=== PATIENT | male | born 1935 | race African-American/Black ===

== ENCOUNTER 2020-02-03 13:14 | Emergency (ER) | payer MEDICARE, OTHER ==
[~2020-02-03] VITALS: Ht 172.7 cm; Wt 77.1 kg
--- NOTE | 2020-02-03 13:42 | Emergency Room Report ---
History of Present Illness General Chief Complaint: Lower Extremity Injury Source: Patient, Medical Record Present Illness HPI Patient is an 84-year-old male who presented after increased left lower extremity pain. Reportedly had a fall approximately 1 week ago. Increased swelling to the anterior left leg. Had noticed some increased redness to the area as well as swelling. Patient's patient denies any headaches or weakness. Prior history of peripheral vascular disease and had previous stenting to the left lower extremity. Denies any fever. Had not been having any significant progression since the injury. Patient is normally followed at the [facility]. Patient had not been having any extremity weakness or numbness. He denies any increased pain with ambulation but reports having some pain with external rotation. Allergies: Coded Allergies: No Known Allergies (Unverified , 02/03/20) COVID-19 Screening Contact w/high risk pt: No Recent Travel to affected area: No Experienced COVID-19 symptoms?: No COVID-19 Testing performed PHARMACY OPERATIONS COORDINATOR: No Patient History Past Medical History: see triage record Reviewed Nursing Documentation: PMH: Agreed; PSxH: Agreed Nursing Documentation-PMH Past Medical History: No History, Except For Hx Hypertension: Yes Hx Neurological Problems: Yes - memory problem Review of Systems All Other Systems: negative except mentioned in HPI Physical Exam Vital Signs Date Time Temp Pulse Resp B/P (MAP) Pulse Ox O2 Delivery O2 Flow Rate FiO2 02/03/20 13:32 98.8 84 16 127/63 (84) 97 Room Air Sp02 EP Interpretation: reviewed, normal General Appearance: normal inspection, well appearing, no apparent distress, alert, GCS 15, Chronically Ill Head: atraumatic ENT: normal ENT inspection, hearing grossly normal, normal voice Neck: normal inspection, full range of motion, supple, no bony tend Respiratory: normal inspection, lungs clear, normal breath sounds, no respiratory distress, no retraction, no wheezing Cardiovascular #1: regular rate, rhythm, no edema Gastrointestinal: normal inspection, normal bowel sounds, non tender, soft, no guarding, no hernia Genitourinary: no CVA tenderness Musculoskeletal: normal inspection, back normal, normal range of motion Neurologic: alert, responsive, speech normal, normal inspection, other - Right upper extremity weakness. Psychiatric: normal inspection, judgement/insight normal, mood/affect normal Skin: other - Swelling and erythema to the anterior left leg. Pulses intact. Procedures Incision and Drainage Incision and Drainage : Consent: Written Site: left leg Blade Size: 15 I & D Procedure: betadine prep, sterile drapes applied, sterile dressing applied, gauze wick placed Wound Location: lower extremity Wound's Depth, Shape: superficial Wound Length (cm): 2 Wound Explored: clean Volume Anesthetic (ccs): 3 Patient Tolerated: Well Complications: None Progress drained hematoma from left anterior leg. Medical Decision Making Diagnostic Impression: Primary Impression: Left leg pain Additional Impressions: Hematoma Contusion ER Course Patient presented for left lower extremity pain. Differential diagnosis include was not limited to fracture, hematoma, compartment syndrome, abscess among others. Because of complexity of patient's case laboratory tests and imaging studies were ordered.Imaging 2 views interpreted by me showed normal bony alignment without evident fracture. Patient was consented for incision and drainage. Patient was advised risk benefits and alternatives of incision of left lower extremity including but not limited to infection bleeding and loss of limb. Patient indicates understanding and wishes to proceed with procedure.Patient's laboratory testing was unremarkable. Incision and drainage was performed and expressed moderate amount of dark clot with improvement in local skin color. Patient was advised to have the wound rechecked in 2 days. He was given prescription for Keflex. He is advised to follow-up with either primary care physician or at this emergency department in 2 days for wound recheck.Patient was advised warm wound precautions and signs of infection. This medical record is generated with [employer] dairy farm worker software. There may be some dairy farm worker discrepancies related to use of this software Last Vital Signs Date Time Temp Pulse Resp B/P (MAP) Pulse Ox O2 Delivery O2 Flow Rate FiO2 02/03/20 13:32 98.8 84 16 127/63 (84) 97 Room Air Status: improved Disposition: HOME, SELF-CARE Condition: Stable Sage Mata MD Feb 03, 2020 13:42
[2020-02-03] MEDS ORDERED: cefTRIAXone 1 GM in NS 55 ML IVPB ONE (13:45)
[2020-02-03 14:22] LABS: INR 0.9 (0.9-1.1)
[2020-02-03 14:25] LABS: ANION GAP 9 mmol/L (5-15); BLOOD UREA NITROGEN 32 mg/dL (7-18); CARBON DIOXIDE 25 MMOL/L (21-32); CHLORIDE 101 MMOL/L (98-107); CREATININE 1.6 MG/DL (0.55-1.30); POTASSIUM 4.6 MMOL/L (3.5-5.1); SODIUM 135 MMOL/L (136-145)
[2020-02-03 14:28] LABS: BASOPHILS % (AUTO) 0.7 % (0.0-2.0); EOSINOPHILS % (AUTO) 0.9 % (0.0-3.0); HEMATOCRIT 31.3 % (42.0-52.0); HEMOGLOBIN 10.4 G/DL (14.2-18.0); LYMPHOCYTES % (AUTO) 25.4 % (20.0-45.0); MEAN CORPUSCULAR VOLUME 83 FL (80-99); MONOCYTES % (AUTO) 8.4 % (1.0-10.0); NEUTROPHILS % (AUTO) 64.7 % (45.0-75.0); PLATELET COUNT 136 K/UL (150-450); RED BLOOD COUNT 3.75 M/UL (4.70-6.10); RED CELL DISTRIBUTION WIDTH 14.5 % (11.6-14.8); WHITE BLOOD COUNT 9.6 K/UL (4.8-10.8)
[2020-02-03 14:30] LABS: ALANINE AMINOTRANSFERASE 17 U/L (12-78); ALBUMIN 3.5 G/DL (3.4-5.0); ALBUMIN/GLOBULIN RATIO 0.9 (1.0-2.7); ALKALINE PHOSPHATASE 81 U/L (46-116); ASPARTATE AMINO TRANSFERASE 30 U/L (15-37); BILIRUBIN,TOTAL 0.5 MG/DL (0.2-1.0)
[2020-02-03] MEDS ORDERED: Lidocaine 1% 10mg/ml/EPI 0.01mg/ml 30ml INJ ONE (14:30)
[2020-02-03] MEDS ORDERED: CEPHALEXIN500 MG ORAL (15:09)
[2020-02-03 15:16] VITALS: BP 121/67
--- NOTE | 2020-02-03 15:24 | Diagnostic Imaging Report ---
Indication: Scabbed and infection of the anterior mid griffiths region Technique: 2 views of the left tibia and fibula Comparison: none Findings: No definite soft tissue gas demonstrated. No acute fractures. No dislocations. No osseous disruption. There are vascular calcifications. Impression: No acute process
== END 2020-02-03 15:15 | disposition home or self-care (01) ==
LOC: EMR 13:50
DX: S80.12XA Contusion of left lower leg, initial encounter (principal); M79.605 Pain in left leg; W19.XXXA Unspecified fall, initial encounter; I10 Essential (primary) hypertension
CPT/HCPCS: 10060; 36415; 73590; 80053; 85025; 85610; 85730; 96365; 99284; J0696

== ENCOUNTER 2020-02-11 10:39 | Emergency (ER) | payer MEDICARE, OTHER ==
[~2020-02-11] VITALS: Ht 177.8 cm; Wt 77.1 kg
[~2020-02-11 10:39] MED LIST: CEPHALEXIN500 MG ORAL
[2020-02-11 10:54] VITALS: BP 134/73
[2020-02-11 10:55] VITALS: BP 134/73
--- NOTE | 2020-02-11 10:55 | NUR ---
ED Nurse Note: Patient brought into ED by wheelchair accompanied by son d/t need the gauze packing removed from open wound on the anterior left lower leg. Patient was here in the ED about 1 week ago and had the wound packed with gauze and was advised to come back to have the packing removed. Patient AxO x 4, denies pain.
--- NOTE | 2020-02-11 10:56 | NUR ---
ED Nurse Note: Dr. Paz at bedside.
--- NOTE | 2020-02-11 11:08 | Emergency Room Report ---
History of Present Illness General Chief Complaint: Wound Recheck/Suture Removal Source: Medical Record Present Illness HPI 84-year-old male presents from home for a wound recheck. Patient had a fall approximately 1 week ago that developed a hematoma and possible cellulitis. Patient was seen here, had an incision and drainage performed and packing placed. Patient followed up at the [place] 2 days later, had packing replaced. Patient now presents for another wound recheck. Patient is still taking antibiotics. He states the wound appears improved. Denies any complaints at this time. Allergies: Coded Allergies: No Known Allergies (Unverified , 02/03/20) COVID-19 Screening Contact w/high risk pt: No Recent Travel to affected area: No Experienced COVID-19 symptoms?: No COVID-19 Testing performed PROMOTION WRITER: No Patient History Reviewed Nursing Documentation: PMH: Agreed; PSxH: Agreed Nursing Documentation-PMH Past Medical History: No History, Except For Hx Hypertension: Yes Hx Neurological Problems: Yes - memory problem Review of Systems All Other Systems: negative except mentioned in HPI Physical Exam Vital Signs Date Time Temp Pulse Resp B/P (MAP) Pulse Ox O2 Delivery O2 Flow Rate FiO2 02/11/20 10:54 98.1 75 14 134/73 (93) 95 Room Air Musculoskeletal: other - Wound noted to left lower extremity with packing in place, minimal surrounding erythema no purulence expressed Procedures Additional Procedure Procedure Narrative Wound care Verbal consent obtained, site was left lower extremity, packing was removed by me. Patient tolerated procedure well without complication, clean dressing applied. Medical Decision Making Diagnostic Impression: Primary Impression: Encounter for wound re-check ER Course Patient presented for a wound check. He had packing in place in the left lower extremity wound. Packing was removed by me. At this time I did apply bacitracin and a clean gauze. Patient still on oral antibiotics. I recommended continued wound care at home with cleaning daily soap and water, antibiotic ointment and clean gauze. Continue oral antibiotics and continue outpatient follow-up. Wound appears to be healing well. Stable for discharge. Last Vital Signs Date Time Temp Pulse Resp B/P (MAP) Pulse Ox O2 Delivery O2 Flow Rate FiO2 02/11/20 10:54 98.1 75 14 134/73 (93) 95 Room Air Disposition: HOME, SELF-CARE Condition: Improved Patient Instructions: Wound Check Additional Instructions: Please keep the wound clean, wash with soap and water daily and apply antibiotic ointment and a clean gauze at least once to twice a day. Patient is instructed to follow-up with her primary care doctor, primary care clinic or [facility] in 1 to 2 days. Patient instructed to return for any worsening symptoms or concerns. Disclaimer: Please note that this report is being documented using [employer] technology. This can lead to erroneous entry secondary to incorrect interpretation by the dictating instrument. Uriel Paz M.D. Feb 11, 2020 11:08
--- NOTE | 2020-02-11 11:11 | NUR ---
ER DISCHARGE NOTE: Patient is cleared to be discharged per Dr. Paz, pt is aox4, on room air, with stable vital signs. pt was given dc and prescription instructions, pt was able to verbalize understanding, pt id band removed. pt is able to ambulate with steady gait. wound dressed with bacitracin and gauze, as ordered by Dr. Paz. pt took all belongings.
[2020-02-11] MEDS ORDERED: Bacitracin Oint UD TOPIC ONE (11:15)
== END 2020-02-11 11:11 | disposition home or self-care (01) ==
LOC: EMR 11:00
DX: S81.802A Unspecified open wound, left lower leg, initial encounter (principal); X58.XXXA Exposure to other specified factors, initial encounter; Y92.9 Unspecified place or not applicable; I10 Essential (primary) hypertension
CPT/HCPCS: 99281